=== PATIENT | female | born 1960 | race Caucasian/White ===

== ENCOUNTER 2021-07-14 11:23 | Inpatient (IN) | payer BC ==
[~2021-07-14] VITALS: Ht 170.2 cm; Wt 113.4 kg
[2021-07-14 12:13] LABS: HEMOGLOBIN 14.3 gm/dl (12.3-15.3); RED BLOOD COUNT 5.29 M/UL (4.00-5.10); WHITE BLOOD COUNT 7.3 K/UL (4.5-11.0)
[2021-07-14 12:36] LABS: BUN/CREATININE RATIO 17 (0-10)
[2021-07-14] MEDS ORDERED: ATORVASTATIN CA20 MG PO (16:01)
[2021-07-14] MEDS ORDERED: SPIRONOLACTONE25 MG PO (16:02)
[2021-07-14] MEDS ORDERED: ATENOLOL100 MG PO (16:02)
[2021-07-14] MEDS ORDERED: WARFARIN SODIUM4 MG PO ×2 (16:03)
[2021-07-14] MEDS ORDERED: FLONASE 0.05% N16 GM (16:04)
[2021-07-14] MEDS ORDERED: ASPIRIN EC81 MG PO (16:05)
[2021-07-15 03:01] LABS: HEMOGLOBIN 14.2 gm/dl (12.3-15.3); RED BLOOD COUNT 5.36 M/UL (4.00-5.10); WHITE BLOOD COUNT 11.1 K/UL (4.5-11.0)
[2021-07-15 03:34] LABS: BUN/CREATININE RATIO 20 (0-10)
[2021-07-16 04:44] LABS: HEMOGLOBIN 14.2 gm/dl (12.3-15.3); RED BLOOD COUNT 5.2 M/UL (4.00-5.10)
[2021-07-16 04:46] LABS: WHITE BLOOD COUNT 7.9 K/UL (4.5-11.0)
[2021-07-16 05:02] LABS: BUN/CREATININE RATIO 18 (0-10)
== END 2021-07-17 10:55 | disposition home or self-care (01) | DRG 310 ==
LOC: ER1 11:23 → CCU 14:08 → CDU 14:08 → CCU 20:28
PROVIDERS: Emergency Medicine; Internal Medicine; Physician Assistant; ADMIT Internal Medicine Infectious Disease
PROC: B24BZZZ Ultrasonography of Heart with Aorta (ICD-10-PCS; principal; 2021-07-15)
DX: R00.1 Bradycardia, unspecified (principal); I44.39 Other atrioventricular block; Z20.822 Contact with and (suspected) exposure to COVID-19; E78.5 Hyperlipidemia, unspecified; I10 Essential (primary) hypertension; I48.91 Unspecified atrial fibrillation; Z79.01 Long term (current) use of anticoagulants; Z95.2 Presence of prosthetic heart valve; Z98.42 Cataract extraction status, left eye; Z98.41 Cataract extraction status, right eye; Z88.2 Allergy status to sulfonamides; Z88.8 Allergy status to other drugs, medicaments and biological substances; Z79.82 Long term (current) use of aspirin; Z82.49 Family history of ischemic heart disease and other diseases of the circulatory system
CPT/HCPCS: ECHO; 36415; 70450; 71045; 80048; 80053; 82550; 82553; 83735; 83880; 84439; 84443; 84484; 85025; 85610; 85730; 93005; 93270; 93306; 96374; 96375; 99285; G0378; J1265; J1610; J2405; U0002

== ENCOUNTER → 2021-09-10 | Outpatient (CLI) | payer BC ==
[~2021-09-10] MED LIST: ASPIRIN EC81 MG PO; ATENOLOL100 MG PO; ATORVASTATIN CA20 MG PO; CARDIZEM CD120 MG PO; CEPHALEXIN500 M1 PO; CLEOCIN HCL300 MG PO; FLONASE 0.05% N16 GM; HYDROCODON-ACE1 EAC4 PO; SPIRONOLACTONE25 MG PO; TAMBOCOR 100 M100 MG PO; ULTRAM50 MG PO; WARFARIN SODIUM4 MG PO
[2021-09-10 09:26] LABS: HEMOGLOBIN 13.7 gm/dl (12.3-15.3); RED BLOOD COUNT 5.17 M/UL (4.00-5.10); WHITE BLOOD COUNT 6.7 K/UL (4.5-11.0)
[2021-09-10 09:46] LABS: BUN/CREATININE RATIO 19 (0-10)
== END ==
LOC: LAB 08:19
PROVIDERS: Internal Medicine Cardiovascular Disease
DX: I48.91 Unspecified atrial fibrillation (principal); I45.5 Other specified heart block; I05.9 Rheumatic mitral valve disease, unspecified; J98.11 Atelectasis
CPT/HCPCS: 36415; 71046; 80048; 85025; 85610

== ENCOUNTER 2021-09-11 11:38 | Outpatient (CLI) | payer BC ==
[~2021-09-11] VITALS: Ht 170.2 cm; Wt 116.6 kg
[~2021-09-11 11:38] MED LIST changes: -CARDIZEM CD120 MG PO; -CEPHALEXIN500 M1 PO; -CLEOCIN HCL300 MG PO; -HYDROCODON-ACE1 EAC4 PO; -TAMBOCOR 100 M100 MG PO; -ULTRAM50 MG PO
[2021-09-11] MEDS ORDERED: CLEOCIN HCL300 MG PO (15:36)
[2021-09-11] MEDS ORDERED: TAMBOCOR 100 M100 MG PO (15:36)
[2021-09-11] MEDS ORDERED: HYDROCODON-ACE1 EAC4 PO (15:36)
[2021-09-11] MEDS ORDERED: CEPHALEXIN500 M1 PO (15:36)
[2021-09-11] MEDS ORDERED: CARDIZEM CD120 MG PO (15:36)
[2021-09-11] MEDS ORDERED: ULTRAM50 MG PO (15:43)
== END 2021-09-12 11:20 | disposition home or self-care (01) ==
LOC: PROG CARE 11:38 → CATH 11:38 → PROG CARE 15:45 → CATH 09-12 11:20
DX: I48.0 Paroxysmal atrial fibrillation (principal); I49.5 Sick sinus syndrome; I47.1 Supraventricular tachycardia; I44.1 Atrioventricular block, second degree; R55 Syncope and collapse; E78.5 Hyperlipidemia, unspecified; I11.0 Hypertensive heart disease with heart failure; I50.9 Heart failure, unspecified; Z88.2 Allergy status to sulfonamides; Z88.5 Allergy status to narcotic agent; Z87.891 Personal history of nicotine dependence; Z79.82 Long term (current) use of aspirin; Z79.01 Long term (current) use of anticoagulants; Z79.899 Other long term (current) drug therapy
CPT/HCPCS: 33208; 71045; 93005; 99152; 99153; C1898; C2621; J1644; J2250; J2270; J3010; J3370; J7040; J7050; J7070

== ENCOUNTER → 2021-09-16 | Outpatient (CLI) | payer BC ==
[~2021-09-16] MED LIST changes: +CARDIZEM CD120 MG PO; +CEPHALEXIN500 M1 PO; +CLEOCIN HCL300 MG PO; +HYDROCODON-ACE1 EAC4 PO; +TAMBOCOR 100 M100 MG PO; +ULTRAM50 MG PO
== END ==
LOC: LAB 10:27
DX: Z51.81 Encounter for therapeutic drug level monitoring (principal); I48.91 Unspecified atrial fibrillation; Z95.2 Presence of prosthetic heart valve
CPT/HCPCS: 36415; 85610

== ENCOUNTER → 2021-09-20 | Outpatient (CLI) | payer BC | LOC: LAB 06:58 | DX: Z51.81 Encounter for therapeutic drug level monitoring (principal); I48.91 Unspecified atrial fibrillation; Z95.2 Presence of prosthetic heart valve | CPT/HCPCS: 36415; 85610 ==